=== PATIENT | male | born 2000 | race African-American/Black ===

== ENCOUNTER 2020-07-25 08:00 | Outpatient (RCR) | payer MEDICAID, SELFPAY | END 2020-07-25 10:06 | disposition other institution (70) | LOC: HO.PT 08:00 | PROVIDERS: PCP Internal Medicine; Visit Provider Orthopaedic Surgery | DX: S93.401D Sprain of unspecified ligament of right ankle, subsequent encounter (principal) | CPT/HCPCS: 97110; 97112; 97140; 97161; 97530 ==